=== PATIENT | female | born 1980 | race Two or more races ===

== ENCOUNTER 2017-06-24 15:10 | Outpatient (RCR) | payer OTHER | END 2017-07-09 | disposition home or self-care (01) | LOC: WCC 15:10 | DX: I74.2 Embolism and thrombosis of arteries of the upper extremities (principal); I73.01 Raynaud's syndrome with gangrene; I73.9 Peripheral vascular disease, unspecified; Z79.52 Long term (current) use of systemic steroids | CPT/HCPCS: G0277; G0463 ==

== ENCOUNTER 2017-06-24 17:00 | Outpatient (RCR) | payer SELFPAY | END 2017-07-09 | disposition home or self-care (01) | LOC: WCC 17:00 | DX: I74.2 Embolism and thrombosis of arteries of the upper extremities (principal); I73.01 Raynaud's syndrome with gangrene; I73.9 Peripheral vascular disease, unspecified; Z79.52 Long term (current) use of systemic steroids ==

== ENCOUNTER 2017-07-10 12:00 | Outpatient (RCR) | payer OTHER | END 2017-08-09 | disposition home or self-care (01) | LOC: WCC 12:00 | DX: I73.9 Peripheral vascular disease, unspecified (principal); I73.01 Raynaud's syndrome with gangrene | CPT/HCPCS: G0277 ×14 ==

== ENCOUNTER 2017-08-11 09:08 | Outpatient (RCR) | payer OTHER | END 2017-09-08 | disposition home or self-care (01) | LOC: WCC 09:08 | DX: I73.01 Raynaud's syndrome with gangrene (principal); I73.9 Peripheral vascular disease, unspecified; Z79.52 Long term (current) use of systemic steroids | CPT/HCPCS: G0277 ×9 ==

== ENCOUNTER 2017-09-09 08:30 | Outpatient (RCR) | payer OTHER | END 2017-10-09 | disposition home or self-care (01) | LOC: WCC 08:30 | DX: I73.9 Peripheral vascular disease, unspecified (principal); I73.01 Raynaud's syndrome with gangrene; I74.2 Embolism and thrombosis of arteries of the upper extremities; Z79.52 Long term (current) use of systemic steroids | CPT/HCPCS: G0277 ×5 ==